=== PATIENT | female | born 1940 | race Caucasian/White ===

== ENCOUNTER 2017-03-27 13:35 | Emergency (ER) | payer MEDICARE, OTHER ==
[~2017-03-27] VITALS: Ht 165.1 cm; Wt 101.4 kg
[~2017-03-27 13:35] MED LIST: ASPIRIN EC81 MG PO; ASPIRIN325 MG PO; ATENOLOL50 MG PO; COZAAR100 MG PO; COZAAR50 MG PO; DILTIAZEM ER180 MG PO; DILTIAZEM HCL120 MG PO; DULERA 200 MCG/13 GM; FENOFIBRATE48 MG PO; LIPITOR40 MG PO; MIRALAX17 GM PO; OMEPRAZOLE20 MG PO; PACERONE200 MG PO; PREDNISONE20 MG PO; PROZAC20 MG PO; TRAZODONE HCL50 MG PO; TRICOR145 MG PO; TRICOR48 MG PO; VITAMIN D-32000 UNI1 PO; XARELTO20 MG PO
== END 2017-03-27 13:46 | disposition home or self-care (01) ==
LOC: ED 13:35
DX: R05 Cough (principal); R11.0 Nausea; R52 Pain, unspecified

== ENCOUNTER 2017-03-27 13:54 | Emergency (ER) | payer MEDICARE, OTHER ==
[~2017-03-27] VITALS: Ht 165.1 cm; Wt 101.4 kg
--- NOTE | 2017-03-28 04:57 | EKG ---
[facility] [address] [place] [address] Signed Suspect arm lead reversal, interpretation assumes no reversal Atrial flutter with variable AV block Rightward axis Nonspecific ST and T wave abnormality Abnormal ECG When compared with ECG of 23-MAY-2016 14:58, Atrial flutter has replaced Sinus rhythm Vent. rate has increased BY 54 BPM T wave inversion less evident in Anterolateral leads QT has lengthened Confirmed by KARYN SALES MD ([id number]) on 03/28/2017 4:57:37 AM Electronically Signed By: KARYN SALES MD 03/28/17 0457 PATIENT NAME: KELLY MYERS Electrocardiogram DATE OF : 44 PHYSICIAN: KARYN SALES MD REPORT #: [id number] REPORT IS CONFIDENTIAL AND NOT TO BE RELEASED WITHOUT AUTHORIZATION
== END 2017-03-27 16:47 | disposition home or self-care (01) ==
LOC: ED 13:54
DX: J10.1 Influenza due to other identified influenza virus with other respiratory manifestations (principal); I48.92 Unspecified atrial flutter; I25.2 Old myocardial infarction; I10 Essential (primary) hypertension; Z95.1 Presence of aortocoronary bypass graft; Z88.8 Allergy status to other drugs, medicaments and biological substances; Z79.899 Other long term (current) drug therapy
CPT/HCPCS: 80048; 85025; 87502; 93005; 93010; 96361; 96374; 99283; J7040

== ENCOUNTER 2017-03-29 18:51 | Emergency (ER) | payer MEDICARE, OTHER ==
[~2017-03-29] VITALS: Ht 165.1 cm; Wt 101.4 kg
--- NOTE | 2017-03-30 06:50 | EKG ---
[facility] [address] [facility] [place] [address] Signed Suspect arm lead reversal, interpretation assumes no reversal Atrial flutter with variable AV block Rightward axis Nonspecific ST abnormality Prolonged QT Abnormal ECG When compared with ECG of 27-MAR-2017 15:10, Nonspecific T wave abnormality now evident in Inferior leads Confirmed by KARYN SALES MD ([id number]) on 03/30/2017 6:49:48 AM Electronically Signed By: KARYN SALES MD 03/30/17 0650 PATIENT NAME: KELLY MYERS Electrocardiogram DATE OF : 44 PHYSICIAN: KARYN SALES MD REPORT #: [id number] REPORT IS CONFIDENTIAL AND NOT TO BE RELEASED WITHOUT AUTHORIZATION
== END 2017-03-29 22:10 | disposition home or self-care (01) ==
LOC: ED 18:51
DX: I48.91 Unspecified atrial fibrillation (principal); J11.1 Influenza due to unidentified influenza virus with other respiratory manifestations; I10 Essential (primary) hypertension; I25.10 Atherosclerotic heart disease of native coronary artery without angina pectoris; I25.2 Old myocardial infarction; Z87.891 Personal history of nicotine dependence; Z88.8 Allergy status to other drugs, medicaments and biological substances; Z79.899 Other long term (current) drug therapy
CPT/HCPCS: 80053; 83735; 84100; 84484; 85025; 93005; 93010; 99283

== ENCOUNTER 2017-10-21 19:12 | Emergency (ER) | payer MEDICARE, OTHER ==
[~2017-10-21] VITALS: Ht 165.1 cm; Wt 101.4 kg
[2017-10-21] MEDS ORDERED: SYMBICORT 80-10.2 GM INH (19:29)
[2017-10-21] MEDS ORDERED: VENTOLIN HFA18 GM INH (19:30)
== END 2017-10-21 20:15 | disposition home or self-care (01) ==
LOC: ED 19:12
PROC: 0HQCXZZ Repair Left Upper Arm Skin, External Approach (ICD-10-PCS; principal; 2017-10-21)
DX: S41.112A Laceration without foreign body of left upper arm, initial encounter (principal); I10 Essential (primary) hypertension; Z87.891 Personal history of nicotine dependence; Z88.8 Allergy status to other drugs, medicaments and biological substances; Z79.899 Other long term (current) drug therapy; Z23 Encounter for immunization; W01.198A Fall on same level from slipping, tripping and stumbling with subsequent striking against other object, initial encounter
CPT/HCPCS: 12002; 90471; 90715; 99282

== ENCOUNTER 2019-11-29 14:39 | Emergency (ER) | payer MEDICARE, OTHER | END 2019-11-29 17:46 | disposition home or self-care (01) | LOC: ED 14:39 | DX: I48.91 Unspecified atrial fibrillation (principal); I10 Essential (primary) hypertension; Z86.73 Personal history of transient ischemic attack (TIA), and cerebral infarction without residual deficits; J44.9 Chronic obstructive pulmonary disease, unspecified; I25.2 Old myocardial infarction; G47.30 Sleep apnea, unspecified; Z87.891 Personal history of nicotine dependence; Z88.8 Allergy status to other drugs, medicaments and biological substances; Z79.899 Other long term (current) drug therapy ==

== ENCOUNTER 2020-02-04 14:09 | Emergency (ER) | payer MEDICARE, OTHER ==
[~2020-02-04] VITALS: Ht 167.6 cm; Wt 104.3 kg
[~2020-02-04 14:09] MED LIST changes: +AMLODIPINE BESYL5 MG PO; +ROSUVASTATIN CA40 MG PO; +SYMBICORT 80-10.2 GM INH; +VENTOLIN HFA18 GM INH
--- NOTE | 2020-02-04 16:53 | EKG ---
[facility] [address] [facility] [place] [address] Signed Atrial fibrillation with rapid ventricular response Rightward axis ST \T\ T wave abnormality, consider inferior ischemia Abnormal ECG Confirmed by ADRIAN RASCON MD ([id number]) on 02/04/2020 4:53:07 PM Electronically Signed By: ADRIAN RASCON MD 02/04/20 1653 PATIENT NAME: KELLY MYERS Electrocardiogram DATE OF : 44 PHYSICIAN: ADRIAN RASCON MD REPORT #: [id number] REPORT IS CONFIDENTIAL AND NOT TO BE RELEASED WITHOUT AUTHORIZATION
--- NOTE | 2020-02-04 16:54 | EKG ---
[facility] [address] [facility] [place] [address] Signed Sinus tachycardia with short [place] Marked ST abnormality, possible inferior subendocardial injury Abnormal ECG When compared with ECG of 04-FEB-2020 14:16, (Unconfirmed) Sinus rhythm has replaced Atrial fibrillation ST more depressed in Inferior leads Confirmed by ADRIAN RASCON MD ([id number]) on 02/04/2020 4:54:18 PM Electronically Signed By: ADRIAN RASCON MD 02/04/20 1654 PATIENT NAME: KELLY MYERS Electrocardiogram DATE OF : 44 PHYSICIAN: ADRIAN RASCON MD REPORT #: [id number] REPORT IS CONFIDENTIAL AND NOT TO BE RELEASED WITHOUT AUTHORIZATION
== END 2020-02-04 17:01 | disposition home or self-care (01) ==
LOC: ED 14:09
DX: I48.91 Unspecified atrial fibrillation (principal); I10 Essential (primary) hypertension; J44.9 Chronic obstructive pulmonary disease, unspecified; I25.2 Old myocardial infarction; G47.30 Sleep apnea, unspecified; Z87.891 Personal history of nicotine dependence; Z88.8 Allergy status to other drugs, medicaments and biological substances; Z79.899 Other long term (current) drug therapy
CPT/HCPCS: 71045; 80053; 83735; 84484; 85025; 85610; 93005; 93010; 96374; 99285-25

== ENCOUNTER 2021-02-11 10:50 | Day surgery (SDC) | payer MEDICARE, OTHER ==
[~2021-02-11] VITALS: Ht 167.6 cm; Wt 104.5 kg
--- NOTE | ~2021-02-11 | OR ---
[facility] [address] [place], [place] [address] Draft DATE OF OPERATION: 02/11/2021 SURGEON: Jose Villarreal MD PREOPERATIVE DIAGNOSES: 1. Positive Cologuard test. 2. Multiple medical problems (asthma, hypertension, pacemaker, chronic anticoagulation with Eliquis). POSTOPERATIVE DIAGNOSES: 1. Extensive sigmoid and left-sided diverticulosis. 2. Polyps x3. PROCEDURES: Total colonoscopy to cecum with cold snare polypectomy x1 and cold morcellation polypectomy x3. ANESTHESIA: Intravenous sedation, propofol infusion; Jeff Garrett CRNA INDICATIONS: This 80-year-old white woman is a patient Dr. Demetrius Soto who underwent Cologuard testing on December 23, 2020 and found to be positive. She has no symptoms of bleeding, diarrhea, or constipation and has no family history of colon cancer. She has a number of medical problems including asthma, hypertension, a pacemaker in place and chronically anticoagulated with Eliquis. She is admitted at this time to undergo colonoscopy on the basis of Cologuard test. She understands the risks of bleeding, infection, and perforation. FINDINGS: The prep was excellent. Complete colonoscopy was undertaken to the cecum without question. The ileocecal valve was quite prominent, though not neoplastic but was biopsied nevertheless. There were polyps, one in the right transverse, the other at 40 cm and the other in the rectum, all excised. The lowest one in the rectum was excised with cold snare technique. DESCRIPTION OF PROCEDURE: The patient was brought to the endoscopy suite and placed in lateral decubitus position, given intravenous sedation with full cardiopulmonary monitoring by the operating system programmer. Digital rectal examination was normal. PATIENT NAME: KELLY MYERS OPERATIVE REPORT DATE OF : 44 REPORT #: [id number] PHYSICIAN: JOSE VILLARREAL MD PCP: DEMETRIUS SOTO MD REPORT IS CONFIDENTIAL AND NOT TO BE RELEASED WITHOUT AUTHORIZATION [facility] [address] [place], [place] [address] Draft An Olympus video colonoscope was passed in the rectum and manipulated throughout the colon. Passage to the sigmoid and left colon was arduous and lengthy and time consuming due to numerous diverticular changes and redundancy. The scope was ultimately advanced beyond this and to the cecum itself. The ileocecal valve was quite prominent and although not neoplastic, was biopsied nevertheless on the off chance this could be . The scope was then withdrawn and examination undertaken. In the right transverse colon, there was a small polyp that was excised with cold morcellation technique without problem. Further withdrawal of scope showed no other abnormality until approximately 40 cm from the anal verge, where a similar such polyp was noted, this was excised with cold morcellation technique as well. Further withdrawal showed a somewhat sessile polyp in the rectum, this was excised with a combination of techniques including cold snare and morcellation technique. Specimens were passed for pathology. The patient tolerated the procedure well. CONCLUDING DIAGNOSIS: Polyps x3 and possibly 4. PLAN: Recommend repeat colonoscopy in 5 years if clinically indicated given advanced age and numerous medical comorbidities. Restart Eliquis in 48 hours. MD SHAKILA Kruger/MODL /[id number] cc: Demetrius Soto MD Copies: DEMETRIUS SOTO MD ~ PATIENT NAME: KELLY MYERS OPERATIVE REPORT DATE OF : 44 REPORT #: [id number] PHYSICIAN: JOSE VILLARREAL MD PCP: DEMETRIUS SOTO MD REPORT IS CONFIDENTIAL AND NOT TO BE RELEASED WITHOUT AUTHORIZATION
[~2021-02-11 10:50] MED LIST changes: +INDAPAMIDE1.25 MG PO; +TURMERIC500 M2 PO; +[UNRECOGNIZED DRUG - OTHER] PO
--- NOTE | 2021-02-11 11:26 | NUR ---
STATES FELL IN GARDEN DURING SUMMER. NOTHING SINCE.
--- NOTE | 2021-02-11 14:51 | NUR ---
02/11/21 1451 RIGOBERTO NEWMAN 1428-PATIENT TO PACU ON 6L VIA MASK. PATIENT IS REACTIVE TO VERBAL STIMULI. PATIENT PASSSING GAS. PATIENT HAVING SPUTUM COMING OUT OF MOUTH. SUCTION MOUTH. APPLIED COOL CLOTH TO HEAD 1430-PATIENT TAKEN OFF OXYGEN. PATIENT VOMITING. RECEIVED ORDER FROM FRANKLIN PAYNE FOR CAROLIN. EMESIS BAG GIVEN, WASH CLOTH TO FACE. 1436-MEDICATION GIVEN PER EMAR.
--- NOTE | 2021-02-11 14:56 | NUR ---
IV STARTED AT 1230 BY JAMIA CERVANTES.
--- NOTE | 2021-02-12 15:02 | PATH ---
[facility] [address] [place], [place] [address] Signed SPECIMEN(S): A ILEOCECAL VALVE BIOPSY SPECIMEN(S): B TRANSVERSE COLON POLYP SPECIMEN(S): C COLON POLYP AT 40 CM SPECIMEN(S): D RECTAL POLYP SPECIMEN SOURCE: A. ILEOCECAL VALVE BIOPSY B. TRANSVERSE COLON POLYP C. COLON POLYP AT 40 CM D. RECTAL POLYP CLINICAL HISTORY: Colonoscopy. Positive Cologuard test. Post: Diverticulosis and polyps x 3. FINAL PATHOLOGIC DIAGNOSIS: A. Ileocecal valve biopsy: - Benign colonic mucosa, negative for specific diagnostic abnormality. B. Transverse colon polyp: - Tubular adenoma (one fragment). C. Colon polyp at 40 cm: - Tubular adenoma (three fragments). D. Rectal polyp: - Hyperplastic polyp (one fragment). JVR:[id number] MICROSCOPIC EXAMINATION: Histologic sections of all submitted blocks are examined by light microscopy. These findings, together with the gross examination, support the pathologic diagnosis. GROSS DESCRIPTION: Four specimens are received in four containers, labeled "MD." A. The specimen, labeled "MD, 1," and designated on the requisition "ileocecal valve," is received in formalin and consists of two dumont soft tissue fragments that measure 0.3 cm in greatest dimension. The specimen is entirely submitted in cassette (A1). B. The specimen, labeled "MD, 2," and designated on the requisition "transverse colon polyp," is received in formalin and consists of three dumont soft tissue fragments that measure 0.2-0.3 cm in greatest dimension. The specimen is entirely submitted in cassette (B1). C. The specimen, labeled "MD, 3," and designated on the requisition "colon PATIENT NAME: KELLY MYERS PATHOLOGY DATE OF : 44 REPORT #: [id number] PHYSICIAN: ARMINDA PATHOLOGY PCP: ADRIANNA ROSE MD REPORT IS CONFIDENTIAL AND NOT TO BE RELEASED WITHOUT AUTHORIZATION [facility] [address] [place], [place] [address] Signed polyp at 40 cm," is received in formalin and consists of six dumont soft tissue fragments that measure 0.1-0.3 cm in greatest dimension. The specimen is entirely submitted in cassette (C1). D. The specimen, labeled "MD, 4," and designated on the requisition "rectal polyp," is received in formalin and consists of four dumont soft tissue fragments with vegetative matter that measure 0.2-0.7 cm in greatest dimension. The specimen is entirely submitted in cassette (D1). AT(under the direct supervision of a pathologist) The Gross Description was prepared using a voice recognition system. The report was reviewed for accuracy; however, sound-alike word errors, addition and/or deletions may occur. If there is any question about this report, please contact Client Services. PERFORMING LABORATORY: The technical component was performed by [facility] [employer], [address] [place] [id number] (Welder Tack: Natasha Villagomez MD; CLIA# [id number]). Professional interpretation was performed by [employer] [facility] [employer], [facility], [address] [place] [id number]. Diagnostician: Brian Arhcer MD Pathologist Electronically Signed 02/12/2021 Copies: ~ PATIENT NAME: KELLY MYERS PATHOLOGY DATE OF : 44 REPORT #: [id number] PHYSICIAN: ARMINDA PATHOLOGY PCP: ADRIANNA ROSE MD REPORT IS CONFIDENTIAL AND NOT TO BE RELEASED WITHOUT AUTHORIZATION
== END 2021-02-11 18:00 | disposition home or self-care (01) ==
LOC: DS 10:50 → OPS 10:50
PROVIDERS: ATTEND Surgery
PROC: 0DBL8ZX Excision of Transverse Colon, Via Natural or Artificial Opening Endoscopic, Diagnostic (ICD-10-PCS; 2021-02-11)
PROC: 0DBP8ZX Excision of Rectum, Via Natural or Artificial Opening Endoscopic, Diagnostic (ICD-10-PCS; 2021-02-11)
PROC: 0DBC8ZX Excision of Ileocecal Valve, Via Natural or Artificial Opening Endoscopic, Diagnostic (ICD-10-PCS; principal; 2021-02-11 12:00)
DX: K57.30 Diverticulosis of large intestine without perforation or abscess without bleeding (principal); K62.1 Rectal polyp; D12.3 Benign neoplasm of transverse colon; I10 Essential (primary) hypertension; E78.00 Pure hypercholesterolemia, unspecified; J44.9 Chronic obstructive pulmonary disease, unspecified; I48.91 Unspecified atrial fibrillation; G47.33 Obstructive sleep apnea (adult) (pediatric); M19.90 Unspecified osteoarthritis, unspecified site; I25.2 Old myocardial infarction; Z79.01 Long term (current) use of anticoagulants; Z79.899 Other long term (current) drug therapy; Z79.51 Long term (current) use of inhaled steroids; Z95.810 Presence of automatic (implantable) cardiac defibrillator; Z88.8 Allergy status to other drugs, medicaments and biological substances; Z95.1 Presence of aortocoronary bypass graft
CPT/HCPCS: J2405; J2704

== ENCOUNTER 2021-03-05 07:38 | Emergency (ER) | payer MEDICARE, OTHER ==
[~2021-03-05] VITALS: Ht 165.1 cm; Wt 103.0 kg
[~2021-03-05 07:38] MED LIST changes: -AMLODIPINE BESYL5 MG PO; +NORVASC10 MG PO
[2021-03-05] MEDS ORDERED: BISOPROLOL FUMAR5 MG PO (08:06)
--- NOTE | 2021-03-07 16:29 | EKG ---
[facility] [address] [facility] [place] [address] Signed Ventricular-paced rhythm with occasional supraventricular complexes Abnormal ECG Confirmed by KAYLENE MADRIGAL DO ([id number]) on 03/07/2021 4:29:13 PM Electronically Signed By: KAYLENE MADRIGAL DO 03/07/21 1629 PATIENT NAME: KELLY MYERS Electrocardiogram DATE OF : 44 PHYSICIAN: KAYLENE MADRIGAL DO REPORT #: [id number] REPORT IS CONFIDENTIAL AND NOT TO BE RELEASED WITHOUT AUTHORIZATION
--- NOTE | 2021-03-07 16:29 | EKG ---
[facility] [address] [facility] [place], [place] [address] Signed Atrial fibrillation with a competing junctional pacemaker Rightward axis Nonspecific intraventricular conduction delay Nonspecific ST abnormality Abnormal ECG No previous ECGs available Confirmed by KAYLENE MADRIGAL DO ([id number]) on 03/07/2021 4:29:04 PM Electronically Signed By: KAYLENE MADRIGAL DO 03/07/21 1629 PATIENT NAME: KELLY MYERS Electrocardiogram DATE OF : 44 PHYSICIAN: KAYLENE MADRIGAL DO REPORT #: [id number] REPORT IS CONFIDENTIAL AND NOT TO BE RELEASED WITHOUT AUTHORIZATION
== END 2021-03-05 16:29 | disposition home or self-care (01) ==
LOC: ED 07:38
DX: I48.91 Unspecified atrial fibrillation (principal); I10 Essential (primary) hypertension; J44.9 Chronic obstructive pulmonary disease, unspecified; I25.2 Old myocardial infarction; G47.30 Sleep apnea, unspecified; Z87.891 Personal history of nicotine dependence; Z88.8 Allergy status to other drugs, medicaments and biological substances; Z79.899 Other long term (current) drug therapy
CPT/HCPCS: 71045; 80053; 83880; 84484; 85025; 93005; 93010; 99285-25

== ENCOUNTER 2021-04-05 10:04 | Emergency (ER) | payer MEDICARE, OTHER ==
[~2021-04-05] VITALS: Ht 165.1 cm; Wt 105.6 kg
[~2021-04-05 10:04] MED LIST changes: +BISOPROLOL FUMAR5 MG PO
[2021-04-05] MEDS ORDERED: SERTRALINE HCL25 MG PO (10:20)
[2021-04-05] MEDS ORDERED: LASIX20 MG PO (13:40)
[2021-04-05] MEDS ORDERED: K-TAB ER20 MEQ PO (13:40)
[2021-04-05] MEDS ORDERED: LOSARTAN POTASS25 MG PO (13:40)
--- NOTE | 2021-04-05 13:57 | EKG ---
[facility] [address] [place] [address] Signed Ventricular-paced rhythm Abnormal ECG When compared with ECG of 05-MAR-2021 11:28, Vent. rate has increased BY 3 BPM Confirmed by ADRIAN RASCON MD ([id number]) on 04/05/2021 1:57:40 PM Electronically Signed By: ADRIAN RASCON MD 04/05/21 1357 PATIENT NAME: KELLY MYERS Electrocardiogram DATE OF : 44 PHYSICIAN: ADRIAN RASCON MD REPORT #: [id number] REPORT IS CONFIDENTIAL AND NOT TO BE RELEASED WITHOUT AUTHORIZATION
== END 2021-04-05 14:17 | disposition home or self-care (01) ==
LOC: ED 10:04
DX: I50.9 Heart failure, unspecified (principal); I11.0 Hypertensive heart disease with heart failure; I48.91 Unspecified atrial fibrillation; I25.10 Atherosclerotic heart disease of native coronary artery without angina pectoris; J44.9 Chronic obstructive pulmonary disease, unspecified; I25.2 Old myocardial infarction; G47.30 Sleep apnea, unspecified; Z87.891 Personal history of nicotine dependence; Z88.8 Allergy status to other drugs, medicaments and biological substances; Z79.899 Other long term (current) drug therapy; Z79.51 Long term (current) use of inhaled steroids; Z20.822 Contact with and (suspected) exposure to COVID-19
CPT/HCPCS: 36415; 80048; 83880; 85025; 93005; 93010; 96374; 99285-25; C9803; J1940; U0003

== ENCOUNTER 2021-04-08 17:39 | Emergency (ER) | payer MEDICARE, OTHER ==
[~2021-04-08] VITALS: Ht 165.1 cm; Wt 105.2 kg
[~2021-04-08 17:39] MED LIST changes: +K-TAB ER20 MEQ PO; +LASIX20 MG PO; +LOSARTAN POTASS25 MG PO; +SERTRALINE HCL25 MG PO
--- NOTE | 2021-04-09 19:26 | EKG ---
[facility] [address] [facility] [place], [place] [address] Signed Sinus rhythm with premature supraventricular complexes and with occasional premature ventricular complexes Left bundle branch block Abnormal ECG When compared with ECG of 05-APR-2021 10:19, Sinus rhythm has replaced Electronic ventricular pacemaker Confirmed by KAYLENE MADRIGAL DO ([id number]) on 04/09/2021 7:26:03 PM Electronically Signed By: KAYLENE MADRIGAL DO 04/09/21 1926 PATIENT NAME: KELLY MYERS Electrocardiogram DATE OF : 44 PHYSICIAN: KAYLENE MADRIGAL DO REPORT #: [id number] REPORT IS CONFIDENTIAL AND NOT TO BE RELEASED WITHOUT AUTHORIZATION
== END 2021-04-08 20:45 | disposition home or self-care (01) ==
LOC: ED 17:39
DX: I11.0 Hypertensive heart disease with heart failure (principal); I50.9 Heart failure, unspecified; J44.9 Chronic obstructive pulmonary disease, unspecified; I25.2 Old myocardial infarction; I48.91 Unspecified atrial fibrillation; G47.30 Sleep apnea, unspecified; Z87.891 Personal history of nicotine dependence; Z88.8 Allergy status to other drugs, medicaments and biological substances; Z79.899 Other long term (current) drug therapy
CPT/HCPCS: 36415; 71045; 80053; 83880; 84484; 85025; 93005; 93010; 99285-25

== ENCOUNTER 2024-09-14 23:33 | Emergency (ER) | payer MEDICARE, OTHER ==
[~2024-09-14] VITALS: Ht 165.1 cm; Wt 108.8 kg
[2024-09-15 00:14] LABS: BASOPHILS 0.5 % (0.1-1.2); EOSINOPHILS 0.5 % (0.7-5.8); LYMPHOCYTES 26.5 % (19.3-51.7); MCH 33.2 PG (25.6-32.2); MCHC 33.0 g/dL (32.2-35.5); MCV 100.5 fL (79.4-94.8); MONOCYTES 14.0 % (4.7-12.5); NEUTROPHILS 58.0 % (34.0-71.1); RBC 4.01 M/uL (3.93-5.22)
[2024-09-15 00:29] LABS: ALT (SGPT) 18.0 U/L (14-59); AST (SGOT) 19.0 U/L (15-37); GLOMERULAR FILTRATION RATE,EST 45.0 mL/min (>60); PROTEIN, TOTAL 6.9 g/dL (6.4-8.2); UREA NITROGEN 14.0 mg/dL (7-18)
[2024-09-15 01:25] VITALS: BP 156/87
== END 2024-09-15 01:27 | disposition home or self-care (01) ==
LOC: ED 23:33
PROVIDERS: Emergency Medicine
DX: R22.32 Localized swelling, mass and lump, left upper limb (principal); I10 Essential (primary) hypertension; J44.9 Chronic obstructive pulmonary disease, unspecified; I48.91 Unspecified atrial fibrillation; G47.30 Sleep apnea, unspecified; I25.2 Old myocardial infarction; Z87.891 Personal history of nicotine dependence; Z79.899 Other long term (current) drug therapy; Z88.8 Allergy status to other drugs, medicaments and biological substances; Z79.51 Long term (current) use of inhaled steroids
CPT/HCPCS: 36415; 80053; 85025; 93971; 99284-25